=== PATIENT | female | born 1970 | race Caucasian/White ===

== ENCOUNTER → 2017-03-06 | Outpatient (CLI) | payer OTHER ==
[~2017-03-06] MED LIST: AMOX TR-K CLV1 EAC4 PO; CIPRO500 MG PO; DILAUDID2 MG PO; ENDOCET 5-3251 EACH PO; FENOFIBRATE145 MG; FLAGYL500 MG PO; FLEXERIL10 MG PO; HYDROCODON-ACE1 EAC7 PO; KLONOPIN0.5 M1 PO; LIPITOR40 MG PO; LISINOPRIL-HCT1 EAC3; LISINOPRIL-HCT1 EAC3 PO; LOFIBRA200 MG PO; LORAZEPAM1 MG PO; METOPROLOL TART50 MG; METOPROLOL TART50 MG PO; MOTRIN800 MG PO; NOHOMEMEDS; OMEPRAZOLE20 MG PO; OMEPRAZOLE40 M1 PO; PERCOCET 5/31 TABLET PO; PRAVACHOL40 MG PO; PRAVASTATIN SOD40 MG; REGLAN10 MG PO; TOPROL XL50 MG PO; TRICOR145 MG PO; TRICOR48 MG PO; VITAMIN D31000 UNI2 PO; ZANTAC300 MG PO; ZESTORETIC 10-1 EAC1 PO; ZOFRAN ODT4 MG PO
== END | disposition home or self-care (01) ==
LOC: AMB 13:00
PROC: B02B1ZZ Computerized Tomography (CT Scan) of Spinal Cord using Low Osmolar Contrast (ICD-10-PCS; principal; 2017-03-06)
DX: M47.816 Spondylosis without myelopathy or radiculopathy, lumbar region (principal); M25.78 Osteophyte, vertebrae; Z98.1 Arthrodesis status
CPT/HCPCS: 62304; 72131

== ENCOUNTER → 2017-03-19 | Outpatient (CLI) | payer OTHER | END | disposition home or self-care (01) | LOC: NUC 03-13 10:00 | DX: T84.216A Breakdown (mechanical) of internal fixation device of vertebrae, initial encounter (principal); Y79.8 Miscellaneous orthopedic devices associated with adverse incidents, not elsewhere classified; R93.7 Abnormal findings on diagnostic imaging of other parts of musculoskeletal system | CPT/HCPCS: 78315; A9503 ==